=== PATIENT | female | born 1985 | race Caucasian/White ===

== ENCOUNTER 2016-09-21 00:06 | Emergency (ER) ==
--- NOTE | 2016-09-21 00:38 | PROVIDER DOCUMENTATION ---
HPI-General Adult <UlyssesTee - Last Filed: 09/21/16 16:22> - General Source: patient - History of Present Illness -Gen Adult Nature of Presenting Problems: Pt. is 31 yof that presents with c/o depression, SI and HI. Pt. reports she is 5 months and is a G4, P3. Pt. states today [facility] took her kids away and gave them to her parents due to concerns her OB physician had with the patient failing drug tests. Pt. reports now she is thinking of hurting herself but doesn't have a plan and she wants to hurt the people responsible for removing her children. Pt. denies any plan to do so. Pt. reports no other symptoms. Location of Pain/Injury: reports: none. denies: head, face, mouth, neck, chest , upper extremity, hand(s), abdomen, back, pelvis, genitalia, lower extremity, feet, upper body, lower body, generalized Pain Radiation: reports: no radiation Quality of Pain: reports: none. denies: aching, burning, cramping, dull, fullness, indigestion, pressure, sharp, stabbing, tearing, throbbing, tightness Severity: denies: mild, moderate, severe Onset/Duration: reports: gradual, other (20 years) Timing: reports: still present. denies: improving, gone now, resolved prior to arrival, intermittent, constant, changing over time, getting worse Context/Activities at Onset: reports: recent emotional stress. denies: recent physical stress, recent trauma history, possible bad food, cold exposure, out of country travel Modifying Factors: improves with: nothing Associated Symptoms: reports: other (SI, HI, Depression). denies: anxiety, arm pain, back/neck pain, chest pain, constipation, cough, diaphoresis, diarrhea, dizziness, EENT symptoms, fatigue, fever/chills, genitourinary problems, headaches, heartburn, joint pain, loss of appetite, malaise, muscle aches, sinus congestion/drainage, nausea, rash, seizure, shortness of breath, sensory/ motor loss, pain with inspiration, swelling/mass in abdomen, syncope, vomiting, weakness, trouble walking Similar Symptoms Previously?: Yes Recently seen or treated by another doctor?: No <Raegan Townsend - Last Filed: 09/21/16 17:56> - General Chief Complaint: Psych Stated Complaint: PSYCH Time Seen by Provider: 09/21/16 00:07 Allergies/Adverse Reactions: Patient Allergies Allergy/AdvReac Type Severity Reaction Status Date / Time Penicillins Allergy Intermediate HIVES Verified 09/21/16 00:37 amoxicillin Allergy Unknown Verified 09/21/16 00:37 Home Medications: Home Medication List Medication Instructions Recorded Confirmed Last Taken Type Ondansetron Odt [Zofran 4 mg Odt] 1 tab PO Q4-6H PRN PRN 06/10/13 09/21/1609/20 History Buspirone HCl 7.5 mg PO BID 09/21/16 09/21/16 09/20/16 History Iron,Fm,Ps/Folic/B,C18/L.casei 1 each PO DAILY 09/21/16 09/21/16 09/20/16 History [Fusion Plus Capsule] Pnv 11-Iron Fum-Folic Acid-Om3 1 each PO DAILY 09/21/16 09/21/16 09/20/16 History [C-David Dha Softgel] Review of Systems - Adult - REVIEW OF SYSTEMS - ADULT Constitutional: reports: see HPI. denies: chills, fever, fatique Eyes: reports: see HPI. denies: discharge, blurred vision, double vision Ears, Nose, Mouth & Throat: reports: see HPI. denies: ear discharge, ear pain, hearing loss, sinus problem, nose pain, loose teeth, mouth/dental pain, throat pain, throat swelling Cardiovascular: reports: see HPI. denies: chest pain, irregular heart rate, palpitations, syncope Respiratory: reports: see HPI. denies: cough, dyspnea on exertion, pleurisy, shortness of breath, wheezing Gastrointestinal: reports: see HPI. denies: abdominal pain, hematemesis, diarrhea, nausea, vomiting Genitourinary: reports: see HPI. denies: dysuria, discharge, hematuria, hesitency, urgency Musculoskeletal: reports: see HPI. denies: bone pain, back pain, joint pain, joint swelling, muscle aches, neck pain Integumentary: reports: see HPI. denies: hives, itching, rash, skin thickening Neurological: reports: see HPI. denies: ataxia, headache/migraines, numbness, paresthesia, seizure, tremors Psychiatric: reports: see HPI, depression, emotional problems, suicidal thoughts , other (HI). denies: anxiety <Raegan Townsend - Last Filed: 09/21/16 17:56> Past History - Adult - PAST MEDICAL HISTORY-ADULT Review of Records: reports: Old Records Reviewed, Nursing Assessment Review, Medications Reviewed, Social history reviewed & non-contributory. - IMMUNIZATION STATUS Childhood Immunizations: See Nurse Assessment Flu Vaccine: See Nurse Assessment - FAMILY HISTORY Family History: reviewed, not pertinent - SOCIAL HISTORY Smoking: cigarettes, greater than 1 pack/day Provider spent 3-5 mins advising pt. on dangers of tobacco.: Discussed the need to stop smoking. <Raegan Townsend - Last Filed: 09/21/16 17:56> Physical Exam-General - PHYSICAL EXAM-ADULT Initial Vital Signs Reviewed: Yes - CONSTITUTIONAL General Appearance: alert, moderate distress, thin. negative: obese, anxious, lethargic, slow to respond, obtunded, combative - EYES Eyes: PERRL/EOMI, pink conjunctivae. negative: conjuctival exudate, scleral icterus, subconjunctival hemorrhage - HEAD, EARS, NOSE, MOUTH & THROAT HENMT: normocephalic/atraumatic, moist mucous membranes. negative: angioedema, frontal tenderness, maxillary tenderness - NECK Neck: non-tender, full range of motion, supple, normal inspection. negative: lymphadenopathy, trachial deviation, thyromegaly - RESPIRATORY Respiratory: lungs clear, normal breath sounds. negative: crackles, rales, rhonchi, stridor, wheezing - CARDIOVASCULAR Cardiovascular: normal peripheral pulses, regular rate, rhythm, no edema, no JVD , no murmur. negative: extra beats, friction rub, irregularly irregular - CHEST (BREASTS) Chest/Breast: deferred - GASTROINTESTINAL (ABDOMEN) Abdominal Exam: normal bowel sounds, non tender, soft. negative: distended, guarding, rigid, rebound, tenderness, hernia, mass - GENITOURINARY Female Genitalia/Pelvic Exam: deferred Rectal Exam: deferred Hemoccult Exam: deferred - LYMPHATIC Lymphatic: no adenopathy. negative: axilla node tender, cervical node tenderness - MUSCULOSKELETAL Back Exam: normal inspection, no CVA tenderness, no vertebral tenderness. negative: ecchymosis, swelling, vertebral tenderness Extremity: normal range of motion, non-tender, normal gait, normal inspection. negative: deformity, erythema, inflammation, swelling, tenderness Peripheral Pulses: radial (R): 2+, radial (L): 2+ - SKIN Integumentary: normal color, normal turgor, warm/dry. negative: cyanosis, diaphoresis, ecchymosis, erythema, jaundice, mottled, pallor, petechiae, purpura , rash, swelling, tenderness - NEUROLOGIC Neurologic: grossly normal, no motor/sensory deficits. negative: aphasia, facial droop, focal weakness, motor weakness, sensory deficit - PSYCHIATRIC Psych/Mental Status: oriented x 3, disheveled, depressed affect, tearful, other (SI and HI). negative: paranoid <Raegan Townsend - Last Filed: 09/21/16 17:56> Progress - REASSESSMENT Reassessment #1 Time Reassessed: 16:20 Status: worsening (feels like she is withdrawing from [facility] and wants something) <Tee Arora - Last Filed: 09/21/16 16:22> - PLAN OF CARE/RESULTS Progress/Plan/Lab Results: Discussed results and plan of care with patient. Patient agrees with plan and verbalizes understanding. Vital Signs Temp Pulse Resp BP Pulse Ox 09/21/16 00:22 97.5 F L 105 H 20 135/73 100 Penicillins Allergy (Intermediate, Verified 09/21/16 00:37) HIVES amoxicillin Allergy (Verified 09/21/16 00:37) Unknown Ondansetron Odt [Zofran 4 mg Odt] 1 tab PO Q4-6H PRN PRN 06/10/13 Buspirone HCl 7.5 mg PO BID 09/21/16 Iron,Fm,Ps/Folic/B,C18/L.casei [Fusion Plus Capsule] 1 each PO DAILY 09/21/16 Pnv 11-Iron Fum-Folic Acid-Om3 [C-David Dha Softgel] 1 each PO DAILY 09/21/16 Laboratory 09/21/16 09/21/16 09/21/16 00:40 00:40 00:40 WBC RBC Hgb Hct MCV MCH MCHC RDW Std Deviation Plt Count MPV Immature Gran % (Auto) Neut % (Auto) Lymph % (Auto) [place] % (Auto) Eos % (Auto) Baso % (Auto) Immature Gran # (Auto) Neut # (Auto) Lymph # (Auto) [place] # (Auto) Eos # (Auto) Baso # (Auto) Sodium Potassium Chloride Carbon Dioxide Anion Gap BUN Creatinine Estimated GFR/1.73 m2 BUN/Creatinine Ratio Glucose Calculated Osmolality Calcium Total Bilirubin AST ALT Alkaline Phosphatase Total Protein Albumin Globulin Albumin/Globulin Ratio Vitamin B12 TSH Free T4 Urine Source CLEAN CATCH Urine Color YELLOW Urine Turbidity CLEAR Urine pH 6.0 Ur Specific [place] 1.028 Urine Protein TRACE A Ur Glucose (Stick) TRACE Ur Ketones (Stick) 10 A Urine Blood NEGATIVE Urine Nitrite NEGATIVE Urine Bilirubin NEGATIVE Urobilinogen Dipstick 2 A Urine Leukocytes TRACE A Urine WBC (Auto) <10 Urine RBC (Auto) <10 U Epithel Cells (Auto) >10 A Urine Bacteria (Auto) 3+ Urine Test POSITIVE Urine Opiates Screen PRESUMPTIVE POSITIVE A Ur Oxycodone Screen NONE DETECTED Ur Methadone, Qual NONE DETECTED Ur Barbiturates Screen NONE DETECTED Ur Phencyclidine Scrn NONE DETECTED Ur Amphetamines Screen NONE DETECTED U Benzodiazepines Scrn PRESUMPTIVE POSITIVE A Urine Cocaine Screen NONE DETECTED U Cannabinoids Screen PRESUMPTIVE POSITIVE A Plasma/Serum Ethyl Alc 09/21/16 09/21/16 09/21/16 00:14 00:14 00:14 WBC 12.57 H RBC 3.67 L Hgb 11.4 L Hct 34.0 L MCV 92.6 MCH 31.1 H MCHC 33.5 RDW Std Deviation 13.0 Plt Count 278 MPV 10.8 H Immature Gran % (Auto) 0.3 Neut % (Auto) 67.5 Lymph % (Auto) 22.8 [place] % (Auto) 6.8 Eos % (Auto) 2.4 Baso % (Auto) 0.2 Immature Gran # (Auto) 0.04 Neut # (Auto) 8.48 H Lymph # (Auto) 2.86 [place] # (Auto) 0.86 H Eos # (Auto) 0.30 Baso # (Auto) 0.03 Sodium 139 Potassium 3.2 L Chloride 101 Carbon Dioxide 24 L Anion Gap 14 BUN 9 Creatinine 0.5 Estimated GFR/1.73 m2 > 60 BUN/Creatinine Ratio 18 Glucose 89 Calculated Osmolality 276 Calcium 8.6 L Total Bilirubin 0.17 L AST 13 ALT 9 L Alkaline Phosphatase 82 Total Protein 6.4 Albumin 3.4 L Globulin 3.0 Albumin/Globulin Ratio 1.1 Vitamin B12 380 TSH 1.25 Free T4 0.86 L Urine Source Urine Color Urine Turbidity Urine pH Ur Specific [place] Urine Protein Ur Glucose (Stick) Ur Ketones (Stick) Urine Blood Urine Nitrite Urine Bilirubin Urobilinogen Dipstick Urine Leukocytes Urine WBC (Auto) Urine RBC (Auto) U Epithel Cells (Auto) Urine Bacteria (Auto) Urine Test Urine Opiates Screen Ur Oxycodone Screen Ur Methadone, Qual Ur Barbiturates Screen Ur Phencyclidine Scrn Ur Amphetamines Screen U Benzodiazepines Scrn Urine Cocaine Screen U Cannabinoids Screen Plasma/Serum Ethyl Alc 09/21/16 00:14 WBC RBC Hgb Hct MCV MCH MCHC RDW Std Deviation Plt Count MPV Immature Gran % (Auto) Neut % (Auto) Lymph % (Auto) [place] % (Auto) Eos % (Auto) Baso % (Auto) Immature Gran # (Auto) Neut # (Auto) Lymph # (Auto) [place] # (Auto) Eos # (Auto) Baso # (Auto) Sodium Potassium Chloride Carbon Dioxide Anion Gap BUN Creatinine Estimated GFR/1.73 m2 BUN/Creatinine Ratio Glucose Calculated Osmolality Calcium Total Bilirubin AST ALT Alkaline Phosphatase Total Protein Albumin Globulin Albumin/Globulin Ratio Vitamin B12 TSH Free T4 Urine Source Urine Color Urine Turbidity Urine pH Ur Specific [place] Urine Protein Ur Glucose (Stick) Ur Ketones (Stick) Urine Blood Urine Nitrite Urine Bilirubin Urobilinogen Dipstick Urine Leukocytes Urine WBC (Auto) Urine RBC (Auto) U Epithel Cells (Auto) Urine Bacteria (Auto) Urine Test Urine Opiates Screen Ur Oxycodone Screen Ur Methadone, Qual Ur Barbiturates Screen Ur Phencyclidine Scrn Ur Amphetamines Screen U Benzodiazepines Scrn Urine Cocaine Screen U Cannabinoids Screen Plasma/Serum Ethyl Alc Orders Category Date Time Status Heart Tones NOW Care 09/21/16 00:45 Active ALCOHOL BLOOD Stat Lab 09/21/16 00:14 Completed CBC WITH ELECTRONIC DIFF [HEME] Stat Lab 09/21/16 00:14 Completed COMPREHENSIVE METABOLIC PANEL [CHEM] Stat Lab 09/21/16 00:14 Completed FREE T4 Stat Lab 09/21/16 00:14 Completed TEST-URINE [PREG] Stat Lab 09/21/16 00:40 Completed TSH Stat Lab 09/21/16 00:14 Completed URINALYSIS W/POSS RFLX CULT [URINALYSIS] Stat Lab 09/21/16 00:40 Completed URINE CULTURE [RM] Routine Lab 09/21/16 00:54 Received URINE DRUG SCREEN Stat Lab 09/21/16 00:40 Completed VITAMIN B12 Stat Lab 09/21/16 00:14 Completed Etomidate [Amidate] Med 09/21/16 01:04 Discontinued 40 mg .ROUTE .STK-MED ONE Midazolam [Versed] Med 09/21/16 01:06 Discontinued 10 mg .ROUTE .STK-MED ONE Succinylcholine [Quelicin] Med 09/21/16 01:04 Discontinued 200 mg .ROUTE .STK-MED ONE Laboratory Tests 09/21/16 09/21/16 09/21/16 00:14 00:14 00:14 WBC 12.57 H RBC 3.67 L Hgb 11.4 L Hct 34.0 L MCV 92.6 MCH 31.1 H MCHC 33.5 RDW Std Deviation 13.0 Plt Count 278 MPV 10.8 H Immature Gran % (Auto) 0.3 Neut % (Auto) 67.5 Lymph % (Auto) 22.8 [place] % (Auto) 6.8 Eos % (Auto) 2.4 Baso % (Auto) 0.2 Immature Gran # (Auto) 0.04 Neut # (Auto) 8.48 H Lymph # (Auto) 2.86 [place] # (Auto) 0.86 H Eos # (Auto) 0.30 Baso # (Auto) 0.03 Sodium 139 Potassium 3.2 L Chloride 101 Carbon Dioxide 24 L Anion Gap 14 BUN 9 Creatinine 0.5 Estimated GFR/1.73 m2 > 60 BUN/Creatinine Ratio 18 Glucose 89 Calculated Osmolality 276 Calcium 8.6 L Total Bilirubin 0.17 L AST 13 ALT 9 L Alkaline Phosphatase 82 Total Protein 6.4 Albumin 3.4 L Globulin 3.0 Albumin/Globulin Ratio 1.1 Vitamin B12 TSH Free T4 Urine Source Urine Color Urine Turbidity Urine pH Ur Specific [place] Urine Protein Ur Glucose (Stick) Ur Ketones (Stick) Urine Blood Urine Nitrite Urine Bilirubin Urobilinogen Dipstick Urine Leukocytes Urine WBC (Auto) Urine RBC (Auto) U Epithel Cells (Auto) Urine Bacteria (Auto) Urine Test Urine Opiates Screen Ur Oxycodone Screen Ur Methadone, Qual Ur Barbiturates Screen Ur Phencyclidine Scrn Ur Amphetamines Screen U Benzodiazepines Scrn Urine Cocaine Screen U Cannabinoids Screen Plasma/Serum Ethyl Alc 09/21/16 09/21/16 09/21/16 00:14 00:40 00:40 WBC RBC Hgb Hct MCV MCH MCHC RDW Std Deviation Plt Count MPV Immature Gran % (Auto) Neut % (Auto) Lymph % (Auto) [place] % (Auto) Eos % (Auto) Baso % (Auto) Immature Gran # (Auto) Neut # (Auto) Lymph # (Auto) [place] # (Auto) Eos # (Auto) Baso # (Auto) Sodium Potassium Chloride Carbon Dioxide Anion Gap BUN Creatinine Estimated GFR/1.73 m2 BUN/Creatinine Ratio Glucose Calculated Osmolality Calcium Total Bilirubin AST ALT Alkaline Phosphatase Total Protein Albumin Globulin Albumin/Globulin Ratio Vitamin B12 380 TSH 1.25 Free T4 0.86 L Urine Source CLEAN CATCH Urine Color YELLOW Urine Turbidity CLEAR Urine pH 6.0 Ur Specific [place] 1.028 Urine Protein TRACE A Ur Glucose (Stick) TRACE Ur Ketones (Stick) 10 A Urine Blood NEGATIVE Urine Nitrite NEGATIVE Urine Bilirubin NEGATIVE Urobilinogen Dipstick 2 A Urine Leukocytes TRACE A Urine WBC (Auto) <10 Urine RBC (Auto) <10 U Epithel Cells (Auto) >10 A Urine Bacteria (Auto) 3+ Urine Test POSITIVE Urine Opiates Screen Ur Oxycodone Screen Ur Methadone, Qual Ur Barbiturates Screen Ur Phencyclidine Scrn Ur Amphetamines Screen U Benzodiazepines Scrn Urine Cocaine Screen U Cannabinoids Screen Plasma/Serum Ethyl Alc 09/21/16 00:40 WBC RBC Hgb Hct MCV MCH MCHC RDW Std Deviation Plt Count MPV Immature Gran % (Auto) Neut % (Auto) Lymph % (Auto) [place] % (Auto) Eos % (Auto) Baso % (Auto) Immature Gran # (Auto) Neut # (Auto) Lymph # (Auto) [place] # (Auto) Eos # (Auto) Baso # (Auto) Sodium Potassium Chloride Carbon Dioxide Anion Gap BUN Creatinine Estimated GFR/1.73 m2 BUN/Creatinine Ratio Glucose Calculated Osmolality Calcium Total Bilirubin AST ALT Alkaline Phosphatase Total Protein Albumin Globulin Albumin/Globulin Ratio Vitamin B12 TSH Free T4 Urine Source Urine Color Urine Turbidity Urine pH Ur Specific [place] Urine Protein Ur Glucose (Stick) Ur Ketones (Stick) Urine Blood Urine Nitrite Urine Bilirubin Urobilinogen Dipstick Urine Leukocytes Urine WBC (Auto) Urine RBC (Auto) U Epithel Cells (Auto) Urine Bacteria (Auto) Urine Test Urine Opiates Screen PRESUMPTIVE POSITIVE A Ur Oxycodone Screen NONE DETECTED Ur Methadone, Qual NONE DETECTED Ur Barbiturates Screen NONE DETECTED Ur Phencyclidine Scrn NONE DETECTED Ur Amphetamines Screen NONE DETECTED U Benzodiazepines Scrn PRESUMPTIVE POSITIVE A Urine Cocaine Screen NONE DETECTED U Cannabinoids Screen PRESUMPTIVE POSITIVE A Plasma/Serum Ethyl Alc Pt. was accepted at [facility] and will be transferred - CHANGE OF SHIFT REPORT (ED Provider) Report Given and Care Transferred to:: Dr. Champion Time of Transfer: 01:48 Items Pending: Physician Consult/Arrival (Screening) Tentative Impression of Patient: SI and HI <Raegan Townsend - Last Filed: 09/21/16 17:56> Departure <Tee Arora - Last Filed: 09/21/16 16:22> - Departure Time of Disposition Order: 17:55 Certified Medical Emergency: Emergent <Raegan Townsend - Last Filed: 09/21/16 17:56> - Departure DIAGNOSIS: Suicidal ideations, Homicidal ideations Disposition[facility] Condition: Stable Referrals: None,PCP [Primary Care Provider] - Attestation - Physician/ KISHA Attestation Patient care was provided by Advanced Practice Provider:: Yes Advanced Practice Provider:: Raegan Townsend Advanced Practice Provider documentation review:: The Mid-level provider documentation, treatment plan and medical decision making was reviewed by the physician who agrees with all treatment and medical decision making by the MLP. <Raegan Townsend - Last Filed: 09/21/16 17:56> Physician Attestation
[2016-09-21 00:40] LABS: MANUAL DIFF NEEDED? NO
[2016-09-21 00:44] LABS: BASO% 0.2 % (0.0-0.8); EOS% 2.4 % (0.0-10.0); HEMOGLOBIN 11.4 g/dL (12.0-16.0); IMM GRAN# 0.04 X1000 (0.0-0.04); IMM GRAN% 0.3 % (0.0-0.5); LYMPH# 2.86 X1000 (1.2-3.4); LYMPH% 22.8 % (20.5-51.1); MCH 31.1 PG (27-31); MCHC 33.5 g/dL (33-37); MCV 92.6 FL (81-99); MONO# 0.86 X1000 (0.11-0.59); MONO% 6.8 % (1.7-9.3); MPV 10.8 FL (7.4-10.4); NEUT% 67.5 % (42.2-75.2); PLT 278 X1000 (130-400); RBC 3.67 XMIL (4.2-5.4)
[2016-09-21 00:47] LABS: URINE MICRO REVIEW NEEDED? NO; URINE SOURCE CLEAN CATCH
[2016-09-21 00:51] LABS: BILIRUBIN URINE NEGATIVE (NEGATIVE); BLOOD URINE NEGATIVE (NEGATIVE); COLOR YELLOW; GLUCOSE URINE TRACE mg/dL (NEGATIVE); LEUKOCYTES URINE TRACE (NEGATIVE); NITRITE URINE NEGATIVE (NEGATIVE); PROTEIN URINE TRACE mg/dL (NEGATIVE); SP GRAVITY URINE 1.028; TURBIDITY URINE CLEAR (CLEAR); UR EPITHELIAL CELLS >10 /HPF (<10); URINE BACTERIA 3+ /HPF; URINE CULTURE NEEDED? YES; URINE RBC <10 /HPF (<10); URINE WBC <10 /HPF (<10); UROBILINOGEN URINE 2 mg/dL (NORMAL)
[2016-09-21 01:04] LABS: AGAP 14; ALBUMIN 3.4 g/dL (3.5-5.0); ALKALINE PHOSPHATASE 82 U/L (32-104); BUN 9 mg/dL (8-22); CALCIUM 8.6 mg/dL (8.8-10.2); CHLORIDE 101 mmol/L (98-107); COSMO 276; GOT 13 U/L (10-30); GPT 9 U/L (10-36); POTASSIUM 3.2 mmol/L (3.5-5.1); SODIUM 139 mmol/L (136-145); TCO2 24 mmol/L (25-35); TOTAL BILIRUBIN 0.17 mg/dL (0.20-1.00); TOTAL PROTEIN 6.4 g/dL (6.3-8.3)
[2016-09-21] MEDS ORDERED: AMIDATE ONE (01:04)
[2016-09-21] MEDS ORDERED: QUELICIN ONE (01:04)
[2016-09-21] MEDS ORDERED: VERSED ONE (01:06)
[2016-09-21 01:26] LABS: FREE T4 0.86 ng/dL (0.93-1.70)
[2016-09-21 01:29] LABS: UR AMPHETAMINES QUAL NONE DETECTED (NONE DETECT); UR BARBITUATES QUAL NONE DETECTED (NONE DETECT); UR BENZODIAZEPIN QUAL PRESUMPTIVE POSITIVE (NONE DETECT); UR CANNABINOIDS QUAL PRESUMPTIVE POSITIVE (NONE DETECT); UR COCAINE QUAL NONE DETECTED (NONE DETECT); UR METHADONE QUAL NONE DETECTED (NONE DETECT); UR OPIATES QUAL PRESUMPTIVE POSITIVE (NONE DETECT); UR OXYCODONE QUAL NONE DETECTED (NONE DETECT); UR PCP QUAL NONE DETECTED (NONE DETECT)
[2016-09-21] MEDS ORDERED: BUSPAR PO ONE ×2 (11:04→16:21)
[2016-09-21] MEDS ORDERED: [UNRECOGNIZED DRUG - OTHER] PO ONE (11:05)
[2016-09-21] MEDS ORDERED: NICODERM PATCH ONE (15:29)
[2016-09-21] MEDS ORDERED: NICODERM PATCH TD ONE (15:30)
[2016-09-21] MEDS ORDERED: CATAPRES PO ONE ×2 (16:22)
[2016-09-21] MEDS ORDERED: CATAPRES ONE (16:23)
[2016-09-21 18:16] VITALS: BP 132/71
== END 2016-09-21 17:46 ==
LOC: ED 00:06
DX: O99.342 Other mental disorders complicating pregnancy, second trimester (principal); R45.851 Suicidal ideations; R45.850 Homicidal ideations; F32.9 Major depressive disorder, single episode, unspecified; Z3A.20 20 weeks gestation of pregnancy; Z79.899 Other long term (current) drug therapy
CPT/HCPCS: 80053; 81001; 81025; 82607; 84439; 84443; 85025; 87088; G0480; J0330; J2250; 80320; 80324; 80345; 80346; 80349; 80353; 80358; 80361; 80365; 83992